=== PATIENT | female | born 1940 | race Caucasian/White ===

== ENCOUNTER 2016-08-25 03:44 | Emergency (ER) | payer OTHER ==
[~2016-08-25] VITALS: Ht 149.9 cm; Wt 68.0 kg
[2016-08-25] MEDS ORDERED: ACETAMINOPHEN 325 MG TAB PO ONE (04:30)
[2016-08-25] MEDS ORDERED: SODIUM CHLORIDE 0.9% 500 ML IV ONE (04:45)
[2016-08-25] MEDS ORDERED: cefTRIAXone 1GM/50ML D5W 50 ML IV ONE (04:45)
[2016-08-25 05:01] LABS: Allen Test Modified; Base Excess 2.6 mmol/L (-2.0-2.0); Blood 02Sat 96.3 % (96-100); Blood COHb 0.1 % (0.5-1.5); Blood MetHb 0.2 % (0.0-1.5); HCO3 26.9 mmol/L (22-26.0); HHb 3.7 % (0.0-5.0); MODE MASK - NRB; PCO2 40.2 mmHg (35.0-45.0); PCO2(T) 42.6 mmHg (35.0-45.0); PO2 97.1 mmHg (80.0-100.0); PO2(T) 105.1 mmHg (80.0-100.0); Sample Type Arterial; pH 7.443 (7.350-7.450)
[2016-08-25 05:09] LABS: CONDITION AutoValidated; DEFINITIVE SEE PRINTOUT; Hematocrit 34.7 % (36.0-46.0); Hemoglobin 11.1 g/dL (12.2-16.2); Mean Corpuscular Hemoglobin 28.8 pg (28.0-32.0); Mean Platelet Volume 7.3 fL (7.4-10.4); Platelet Count (auto) 374 10^3/uL (140-450); SUSPECT SEE PRINTOUT
[2016-08-25 05:13] LABS: Red Cell Distribution Width 26.4 % (11.6-16.0)
[2016-08-25 05:14] LABS: Metamyelocytes % 0; Myelocytes % 0; Promyelocytes % 0; Reactive Lymphocytes 0
[2016-08-25 05:40] LABS: Albumin 2.4 g/dL (3.4-5.0); Anion Gap 11 (5-15); Aspartate Aminotransferase 14 U/L (15-37); BUN/Creatinine Ratio 18.6; Blood Urea Nitrogen 30 mg/dL (7-18); Calcium 9.7 mg/dL (8.5-10.1); Carbon Dioxide 27 mmol/L (21-32); Chloride 105 mmol/L (98-107); GFR African American 40 mL/min; GFR Non-African American 33 mL/min; Glucose 97 mg/dL (74-106); Sodium 143 mmol/L (136-145)
[2016-08-25 05:45] LABS: Alkaline Phosphatase 69 U/L (45-117); Bilirubin, Total 0.9 mg/dL (0.2-1.0); Magnesium 2.1 mg/dL (1.6-2.6); Total Protein 5.8 g/dL (6.4-8.2)
[2016-08-25 05:50] LABS: B-Type Natriuretic Peptide 19.84 pg/mL (0-100)
[2016-08-25 05:54] LABS: Temperature: 22.5 C (20.0-25.0)
[2016-08-25 06:48] LABS: Anisocytosis Moderate; Ovalocytes FEW; Platelet Estimate Adequate; Polychromasia Slight; Stomatocytes Few
[2016-08-25 08:30] LABS: Urine Blood Negative /uL (Negative); Urine Color Yellow (Yellow); Urine Glucose Normal (Normal); Urine Hyaline Cast FEW /lpf (0 - 2); Urine Ketone Negative (Negative); Urine Mucus FEW (None Seen); Urine Nitrite Negative (Negative); Urine RBC 1 /hpf (0 - 4); Urine Squamous Epithelial Cell FEW /hpf (<5); Urine Urobilinogen Normal (Negative); Urine pH 5.5 (5.0-8.0)
[2016-08-25 08:31] LABS: Urine Bilirubin Negative (Negative)
[2016-08-25] MEDS ORDERED: AZITHROMYCIN 500MG/D5W 250ML 250 ML IV ONE (09:30)
[2016-08-25 15:17] VITALS: BP 114/70
== END 2016-08-25 16:04 | disposition short-term general hospital (02) ==
LOC: ER 03:44 → EDBD 03:44 → ER 16:04
DX: J18.9 Pneumonia, unspecified organism (principal); J45.909 Unspecified asthma, uncomplicated; E11.9 Type 2 diabetes mellitus without complications; I10 Essential (primary) hypertension; Z93.3 Colostomy status
CPT/HCPCS: 36415; 36600; 51702; 70450; 71010; 80053; 80307; 80320; 81001; 82805; 83605; 83735; 83880; 84484; 85007; 85027; 87040; 87086; 93005; 96365; 96366; 96367; 99285; J0456; J0696